=== PATIENT | male | born 1980 | race Hispanic/Latino ===

== ENCOUNTER 2016-10-27 08:00 | Emergency (ER) | payer MEDICARE ==
[2016-10-27] MEDS ORDERED: PERCOCET 5/325 PO ONE (08:55)
--- NOTE | 2016-10-27 09:01 | Emergency Department Report ---
ED General Adult HPI - General Chief complaint: Pain General Stated complaint: LEFT SIDE BODY PAIN Time Seen by Provider: 10/27/16 08:47 Source: patient, EMS Mode of arrival: Stretcher Limitations: Physical Limitation - History of Present Illness Initial comments: 35-year-old male with past medical history of CVA with residual left-sided deficits, hypertension, previous craniotomy/tracheostomy and PEG presents to the hospital complains of left-sided pain and no bowel movement. Patient has chronic intermittent left-sided body pain since his CVA which has been exacerbated for the last 4 days. Pain is rated a 10 in intensity without aggravating or alleviating factors. Patient is a chronically uses a fentanyl patch and takes hydrocodone. He has not had a bowel movement in the last 6 days. He typically has one bowel movement every 3 days. Patient denies abdominal pain, nausea, vomiting, or fever. Patient is wheelchair-bound and lives in a [facility] living. Patient denies any further intra-abdominal surgeries other than for PEG. Has a scar to right lower quadrant for baclofen pump placement. - Related Data Home Medications Medication Instructions Recorded Confirmed Last Taken Baclofen [Lioresal] 10 mg PO 09/16/14 09/16/14 Unknown ARIPiprazole 15 mg PO QDAY 10/27/16 10/27/16 Unknown DULoxetine 30 mg PO QDAY 10/27/16 10/27/16 Unknown Divalproex Sodium 500 mg PO TID 10/27/16 10/27/16 Unknown Metoprolol 25 mg PO BID 10/27/16 10/27/16 Unknown Omeprazole 20 mg PO QDAY 10/27/16 10/27/16 Unknown Pravastatin 10 mg PO BID 10/27/16 10/27/16 Unknown lamoTRIgine 25 mg PO QDAY 10/27/16 10/27/16 Unknown Previous Rx's Medication Instructions Recorded Last Taken Type Pantoprazole [Protonix TAB] 40 mg PO QDAY #30 tablet 09/17/14 Unknown Rx Polyethylene Glycol 3350 [Miralax 17 gm PO QDAY PRN #15 packet 10/27/16 Unknown Rx 3350] Allergies Allergy/AdvReac Type Severity Reaction Status Date / Time No Known Allergies Allergy Unverified 10/27/16 08:44 ED Review of Systems ROS: Stated complaint: LEFT SIDE BODY PAIN Other details as noted in HPI Comment: All other systems reviewed and negative Other: Constitutional: No fevers chills Eyes: No eye pain visual changes ENT: No ear pain or throat pain Neck: Denies pain Respiratory: Denies cough wheezing shortness of breath Cardiovascular: Denies chest pain, palpitations, syncopes GI: Denies abdominal pain, nausea, vomiting, diarrhea : Denies dysuria, urinary frequency, or urgency Musculoskeletal: as per hpi Skin: Denies rash, lesions, erythema Neurologic: Denies headache, numbness, weakness Psychiatric: Denies suicidal ideation, hallucinations ED Past Medical Hx - Past Medical History Previous Medical History?: Yes Hx Hypertension: Yes (metoprolol) Hx CVA: Yes (2011 L sided deficits) Hx Congestive Heart Failure: No Hx Diabetes: No Hx Seizures: Yes Hx Asthma: No Hx COPD: No - Surgical History Additional Surgical History: Crainectomy, Trach - Social History Smoking Status: Never Smoker Substance Use Type: None - Medications Home Medications: Home Medications Medication Instructions Recorded Confirmed Last Taken Type Baclofen [Lioresal] 10 mg PO 09/16/14 09/16/14 Unknown History Pantoprazole [Protonix TAB] 40 mg PO QDAY #30 tablet 09/17/14 Unknown Rx ARIPiprazole 15 mg PO QDAY 10/27/16 10/27/16 Unknown History DULoxetine 30 mg PO QDAY 10/27/16 10/27/16 Unknown History Divalproex Sodium 500 mg PO TID 10/27/16 10/27/16 Unknown History Metoprolol 25 mg PO BID 10/27/16 10/27/16 Unknown History Omeprazole 20 mg PO QDAY 10/27/16 10/27/16 Unknown History Polyethylene Glycol 3350 [Miralax 17 gm PO QDAY PRN #15 packet 10/27/16 Unknown Rx 3350] Pravastatin 10 mg PO BID 10/27/16 10/27/16 Unknown History lamoTRIgine 25 mg PO QDAY 10/27/16 10/27/16 Unknown History ED Physical Exam - General Limitations: Physical Limitation - Other Other exam information: General: No limitations, patient is alert in no acute distress Head exam: Atraumatic, normocephalic Eyes exam: Normal appearance ENT: Moist mucous membrane, normal oropharynx Neck exam: Tracheostomy scar Respiratory exam: Clear to auscultation bilateral, no wheezes, rales, crackles Cardiovascular: Normal rate and rhythm, normal heart sounds Abdomen: Soft, nondistended, and nontender, and diminished bowel sounds. Extremity: Contracted left upper and lower extremity. Bilateral lower extremity edema equal bilaterally without Tenderness. PT also has limited range of motion of right knee and unable to extend past 90 degrees Back: Normal Inspection, full range of motion, no tenderness Neurologic: Alert, oriented x3, cranial nerves intact, contractures left arm and leg. Left arm atrophy. Psychiatric: normal affect, normal mood Skin: Warm, dry, intact ED Course Vital Signs 10/27/16 10/27/16 10/27/16 08:31 10:45 12:55 Temperature 98.1 F 97.5 F L Pulse Rate 81 88 88 Respiratory 16 16 16 Rate Blood Pressure 114/72 Blood Pressure 128/78 130/86 [Right] O2 Sat by Pulse 97 100 100 Oximetry - Reevaluation(s) Reevaluation #1: 10/27/16 09:04 Percocet 5 mg 2 given for pain. Patient informed of the risk of worsening constipation due to chronic narcotic use ED Medical Decision Making - Lab Data Result diagrams: 10/27/16 10:13 10/27/16 10:13 Lab Results 10/27/16 10/27/16 10/27/16 Range/Units 10:13 10:13 10:13 WBC 4.4 L (4.5-11.0) K/mm3 RBC 4.83 (3.65-5.03) M/mm3 Hgb 13.4 (11.8-15.2) gm/dl Hct 41.5 (35.5-45.6) % MCV 86 (84-94) fl MCH 28 (28-32) pg MCHC 32 (32-34) % RDW 16.1 H (13.2-15.2) % Plt Count 117 L (140-440) K/mm3 Lymph % (Auto) 28.2 (13.4-35.0) % [place] % (Auto) 6.9 (0.0-7.3) % Eos % (Auto) 7.2 H (0.0-4.3) % Baso % (Auto) 0.6 (0.0-1.8) % Lymph # 1.2 (1.2-5.4) K/mm3 [place] # 0.3 (0.0-0.8) K/mm3 Eos # 0.3 (0.0-0.4) K/mm3 Baso # 0.0 (0.0-0.1) K/mm3 Seg Neutrophils % 57.1 (40.0-70.0) % Seg Neutrophils # 2.5 (1.8-7.7) K/mm3 Sodium 142 (137-145) mmol/L Potassium 4.4 (3.6-5.0) mmol/L Chloride 103.7 (98-107) mmol/L Carbon Dioxide 22 (22-30) mmol/L Anion Gap 21 mmol/L BUN 20 (9-20) mg/dL Creatinine 0.8 (0.8-1.5) mg/dL Estimated GFR > 60 ml/min BUN/Creatinine Ratio 25.00 % Glucose 105 H (75-100) mg/dL POC Glucose 104 (70-105) Calcium 9.1 (8.4-10.2) mg/dL Total Bilirubin 0.3 (0.1-1.2) mg/dL AST 10 (5-40) units/L ALT 8 (7-56) units/L Alkaline Phosphatase 74 (35-129) units/L Total Protein 6.8 (6.3-8.2) g/dL Albumin 4.0 (3.9-5) g/dL Albumin/Globulin Ratio 1.4 % - Radiology Data Radiology results: report reviewed xr abd 2 views: naf ct a/p without IV contrast: Mild fecal retention in the rectum. No bowel exertion or severe constipation. Left renal cyst and nonobstructive 2 mm left renal stone. No acute abdominal process - Medical Decision Making Patient had a large bowel movement after receiving soapsuds enema after failed response to fleets mineral oil enema. Patient also received by mouth lactulose. CT does not show any obstruction or significant constipation. Patient will be discharged home with MiraLAX to take as needed for constipation. - Differential Diagnosis constipation, obstruction, chronic pain, narcotic induced constipation Critical Care Time: No Critical care attestation.: If time is entered above; I have spent that time in minutes in the direct care of this critically ill patient, excluding procedure time. ED Disposition Clinical Impression: Constipation, Impacted stool in rectum, Constipation due to opioid therapy, Chronic pain Disposition: DISCHARGED TO HOME OR SELFCARE Is pt being admited?: No Does the pt Need Aspirin: No Condition: Stable Instructions: Constipation (ED), Chronic Pain (ED) Additional Instructions: Your chronic use of narcotics is contributing to her constipation. Use MiraLAX as needed daily for continued constipation. Return if symptoms worsen. Prescriptions: Polyethylene Glycol 3350 [Miralax 3350] 17 gm PO QDAY PRN #15 packet PRN Reason: Constipation Referrals: MENDEZ VELA MD [Primary Care Provider] - 3-5 Days Time of Disposition: 14:26
--- NOTE | 2016-10-27 10:08 | XRay Report ---
ABDOMEN TWO VIEWS: History: Abdominal pain and distention, no bowel movement in 6 days. There is no evidence of free air beneath the diaphragms. The gas pattern within the abdomen is unremarkable. There is no evidence of bowel dilatation, significant air-fluid levels, or masses. The psoas margins are adequately visualized. IMPRESSION: Unremarkable abdomen.
--- NOTE | 2016-10-27 10:48 | Cat Scan Report ---
CT OF THE ABDOMEN AND PELVIS WITHOUT CONTRAST HISTORY: Constipation, abdominal pain. TECHNIQUE: Helical CT without contrast. Sagittal and coronal reformatted images. FINDINGS: Heart size is normal. The visualized lung bases are clear. The bony structures are intact. Chronic deformity and advanced osteoarthritic changes at the left hip are noted. The liver, biliary system, pancreas, spleen and adrenal glands are unremarkable. The aorta is normal caliber. An IVC filter is in place at the level of L3. No ascites or bulky adenopathy. No inflammatory changes. The right kidney and collecting system are within normal limits. A 1 cm cyst is noted in the superior left kidney. A 2 mm calyceal stone is noted the inferior left kidney. Left ureter is normal course and caliber. Normal bladder. There is mild to moderate stool in the rectal vault. Normal stool the colon. No evidence for bowel obstruction or focal thickening. Normal appendix. Impression: Mild fecal retention in the rectum. No bowel obstruction or severe constipation. Left renal cyst and nonobstructing 2 mm left renal stone. No acute abdominal process.
[2016-10-27 10:49] LABS: Alanine Aminotransferase 8 units/L (7-56); Albumin/Globulin Ratio 1.4 %; Alkaline Phosphatase 74 units/L (35-129); Anion Gap 21 mmol/L; Basophils % (Auto) 0.6 % (0.0-1.8); Bilirubin,Total 0.3 mg/dL (0.1-1.2); Blood Urea Nitrogen 20 mg/dL (9-20); Calcium 9.1 mg/dL (8.4-10.2); Carbon Dioxide 22 mmol/L (22-30); Chloride 103.7 mmol/L (98-107); Eosinophils % (Auto) 7.2 % (0.0-4.3); Glucose 105 mg/dL (75-100); Hematocrit 41.5 % (35.5-45.6); Hemoglobin 13.4 gm/dl (11.8-15.2); Mean Corpuscular HGB Conc 32 % (32-34); Mean Corpuscular Hemoglobin 28 pg (28-32); Mean Corpuscular Volume 86 fl (84-94); Platelet Count 117 K/mm3 (140-440); Potassium 4.4 mmol/L (3.6-5.0); Red Blood Count 4.83 M/mm3 (3.65-5.03); Red Cell Distribution Width 16.1 % (13.2-15.2); Sodium 142 mmol/L (137-145); Total Protein 6.8 g/dL (6.3-8.2); White Blood Count 4.4 K/mm3 (4.5-11.0)
[2016-10-27] MEDS ORDERED: CEPHULAC PO ONE (10:59)
[2016-10-27] MEDS ORDERED: FLEET MINERAL OIL PR ONE (11:43)
[2016-10-27] MEDS ORDERED: CEPHULAC PR ONE (13:21)
[2016-10-27 15:19] VITALS: BP 102/62
== END 2016-10-27 16:10 | disposition home or self-care (01) ==
LOC: ED 08:00
DX: K59.00 Constipation, unspecified (principal); K56.41 Fecal impaction; G89.29 Other chronic pain; I10 Essential (primary) hypertension; R56.9 Unspecified convulsions; Z86.73 Personal history of transient ischemic attack (TIA), and cerebral infarction without residual deficits
CPT/HCPCS: 36415; 74020; 74176; 80053; 82962; 85025

== ENCOUNTER 2016-10-28 14:49 | Emergency (ER) | payer MEDICARE ==
--- NOTE | 2016-10-28 16:55 | Emergency Department Report ---
ED General Adult HPI - General Chief complaint: Medical Clearance Stated complaint: LEFT SIDE PAIN Time Seen by Provider: 10/28/16 16:49 Source: patient, RN notes reviewed, old records reviewed Mode of arrival: Stretcher Limitations: Physical Limitation - History of Present Illness Initial comments: This is a 35-year-old male. He is previously unknown to me. Past medical history includes hemorrhagic stroke with residual left-sided deficits, upper extremity contracture, hypertension, previous craniotomy/ tracheostomy, PEG tube placement. Patient was seen in the ER for evaluation of abdominal pain yesterday, and diagnosed with constipation. Patient had a CT scan of the abdomen and pelvis which demonstrated fecal retention. He had a large bowel movement after receiving soapsuds enema. He also received oral lactulose. He was discharged home with MiraLAX. Patient is brought to the hospital today by EMS after defecating on himself, and having inability to clean himself. He has no headache, neck pain, chest pain, nausea or vomiting at this time. He denies irritative and obstructive urinary symptoms. Reports abdominal discomfort is improved. He indicates that he came to the ER "to get cleaned up from this bowel movement. " Patient was cleaned up by the ER field evidence technician prior to my evaluation. He is not homicidal. He is not suicidal. Patient has home health services, and was independently evaluated by the supportive employment case manager, who has ordered an at home evaluation. -: Gradual Consistency: now resolved Improves with: none Worsens with: none Associated Symptoms: denies other symptoms - Related Data Home Medications Medication Instructions Recorded Confirmed Last Taken Baclofen [Lioresal] 10 mg PO 09/16/14 09/16/14 Unknown ARIPiprazole 15 mg PO QDAY 10/27/16 10/27/16 Unknown DULoxetine 30 mg PO QDAY 10/27/16 10/27/16 Unknown Divalproex Sodium 500 mg PO TID 10/27/16 10/27/16 Unknown Metoprolol 25 mg PO BID 10/27/16 10/27/16 Unknown Omeprazole 20 mg PO QDAY 10/27/16 10/27/16 Unknown Pravastatin 10 mg PO BID 10/27/16 10/27/16 Unknown lamoTRIgine 25 mg PO QDAY 10/27/16 10/27/16 Unknown Previous Rx's Medication Instructions Recorded Last Taken Type Pantoprazole [Protonix TAB] 40 mg PO QDAY #30 tablet 09/17/14 Unknown Rx Polyethylene Glycol 3350 [Miralax 17 gm PO QDAY PRN #15 packet 10/27/16 Unknown Rx 3350] Allergies Allergy/AdvReac Type Severity Reaction Status Date / Time No Known Allergies Allergy Unverified 10/27/16 08:44 ED Review of Systems ROS: Stated complaint: LEFT SIDE PAIN Other details as noted in HPI Constitutional: denies: fever Eyes: denies: eye discharge ENT: denies: epistaxis Respiratory: denies: cough Cardiovascular: denies: chest pain Gastrointestinal: constipation Genitourinary: as per HPI Musculoskeletal: as per HPI Skin: as per HPI Neurological: weakness (chronic) Psychiatric: as per HPI ED Past Medical Hx - Past Medical History Hx Hypertension: Yes (metoprolol) Hx CVA: Yes (2012 L sided deficits) Hx Congestive Heart Failure: No Hx Diabetes: No Hx Seizures: Yes Hx Asthma: No Hx COPD: No - Surgical History Additional Surgical History: Crainectomy, Trach - Social History Smoking Status: Never Smoker Substance Use Type: None - Medications Home Medications: Home Medications Medication Instructions Recorded Confirmed Last Taken Type Baclofen [Lioresal] 10 mg PO 09/16/14 09/16/14 Unknown History Pantoprazole [Protonix TAB] 40 mg PO QDAY #30 tablet 09/17/14 Unknown Rx ARIPiprazole 15 mg PO QDAY 10/27/16 10/27/16 Unknown History DULoxetine 30 mg PO QDAY 10/27/16 10/27/16 Unknown History Divalproex Sodium 500 mg PO TID 10/27/16 10/27/16 Unknown History Metoprolol 25 mg PO BID 10/27/16 10/27/16 Unknown History Omeprazole 20 mg PO QDAY 10/27/16 10/27/16 Unknown History Polyethylene Glycol 3350 [Miralax 17 gm PO QDAY PRN #15 packet 10/27/16 Unknown Rx 3350] Pravastatin 10 mg PO BID 10/27/16 10/27/16 Unknown History lamoTRIgine 25 mg PO QDAY 10/27/16 10/27/16 Unknown History ED Physical Exam - General Limitations: Physical Limitation General appearance: alert, in no apparent distress - Head Head exam: Present: atraumatic, normocephalic - Eye Eye exam: Present: normal appearance, EOMI. Absent: nystagmus - ENT ENT exam: Present: normal exam, normal orophraynx, mucous membranes moist, normal external ear exam - Neck Neck exam: Present: normal inspection, full ROM. Absent: tenderness, meningismus - Respiratory Respiratory exam: Present: normal lung sounds bilaterally. Absent: respiratory distress, wheezes, rales, rhonchi, stridor, decreased breath sounds - Cardiovascular Cardiovascular Exam: Present: regular rate, normal rhythm, normal heart sounds. Absent: bradycardia, tachycardia, irregular rhythm, systolic murmur, diastolic murmur, rubs, gallop - GI/Abdominal GI/Abdominal exam: Present: soft, normal bowel sounds. Absent: distended, tenderness, guarding, rebound, rigid, pulsatile mass - Rectal Rectal exam: Present: deferred - Extremities Exam Extremities exam: Present: normal inspection, normal capillary refill, other ( contractures noted to left upper extremity, left lower extremity, this is not new, worsening or different). Absent: calf tenderness - Back Exam Back exam: Present: normal inspection. Absent: CVA tenderness (R), paraspinal tenderness, vertebral tenderness - Neurological Exam Neurological exam: Present: alert, oriented X3, motor sensory deficit (chronic weakness left upper extremity, left lower extremity) - Psychiatric Psychiatric exam: Present: normal affect, normal mood - Skin Skin exam: Present: warm, dry, intact, normal color. Absent: rash ED Course Vital Signs 10/28/16 10/28/16 10/28/16 15:51 19:31 19:32 Temperature 98.2 F 98.0 F Pulse Rate 88 86 Respiratory 20 18 Rate Blood Pressure 128/79 Blood Pressure 126/77 [Right] O2 Sat by Pulse 97 99 100 Oximetry - Reevaluation(s) Reevaluation #1: 10/28/16 17:13 Differential diagnosis: Inability to clean himself after defecation, general medical evaluation, chronic left-sided weakness, resolving constipation Assessment and plan: 35-year-old male with clinically resolving constipation who presented to the ER after inability to clean himself after having a bowel movement. He has no acute complaints. He had an extensive evaluation yesterday. He has home health services, and the supportive employment case manager has already set up for home health evaluation to determine if the patient is a candidate for further services. The patient wants to go home, and I can detect no immediate or emergent medical condition that requires further evaluation at this time. He will be discharged home. He is instructed to follow up with his primary care doctor. 10/28/16 17:15 ED Medical Decision Making - Lab Data Vital Signs 10/28/16 15:51 Temperature 98.2 F Pulse Rate 88 Respiratory 20 Rate Blood Pressure 128/79 O2 Sat by Pulse 97 Oximetry Critical care attestation.: If time is entered above; I have spent that time in minutes in the direct care of this critically ill patient, excluding procedure time. ED Disposition Clinical Impression: History of constipation Disposition: DISCHARGED TO HOME OR SELFCARE Is pt being admited?: No Does the pt Need Aspirin: No Condition: Good Instructions: Constipation (ED), High Fiber Diet (ED) Additional Instructions: continue current outpatient medications. Follow up with a primary care doctor within the next 2 weeks. Return to the ER right away with fevers or chills, chest pain or shortness of breath, intractable nausea or vomiting, inability to tolerate liquids. Referrals: DEBRA REDMAN MD [Primary Care Provider] - 3-5 Days NILSON HIGGINS MD [Staff Physician] - 3-5 Days
[2016-10-28 19:32] VITALS: BP 126/77
== END 2016-10-28 19:59 | disposition home or self-care (01) ==
LOC: ED 14:49
DX: R53.1 Weakness (principal); I10 Essential (primary) hypertension; I63.9 Cerebral infarction, unspecified; R56.9 Unspecified convulsions
CPT/HCPCS: 99283

== ENCOUNTER 2016-11-13 17:08 | Emergency (ER) | payer MEDICARE ==
[2016-11-13] MEDS ORDERED: TYLENOL PO ONE (19:09)
[2016-11-13] MEDS ORDERED: PERCOCET 5/325 PO ONE (20:47)
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
[2016-11-13 21:45] LABS: Basophils % (Auto) 0.7 % (0.0-1.8); Eosinophils % (Auto) 2.3 % (0.0-4.3); Hematocrit 39.9 % (35.5-45.6); Hemoglobin 13.2 gm/dl (11.8-15.2); Mean Corpuscular HGB Conc 33 % (32-34); Mean Corpuscular Hemoglobin 28 pg (28-32); Mean Corpuscular Volume 86 fl (84-94); Platelet Count 128 K/mm3 (140-440); Red Blood Count 4.66 M/mm3 (3.65-5.03); Red Cell Distribution Width 17.3 % (13.2-15.2); White Blood Count 7.7 K/mm3 (4.5-11.0)
[2016-11-13 22:02] LABS: Anion Gap 17 mmol/L; BUN/Creatinine Ratio 26.66; Blood Urea Nitrogen 16 mg/dL (9-20); Carbon Dioxide 22 mmol/L (22-30); Chloride 105.6 mmol/L (98-107); Glucose 98 mg/dL (75-100); Potassium 4.2 mmol/L (3.6-5.0); Sodium 140 mmol/L (137-145)
[2016-11-13 22:53] LABS: Bacteria,Urine 4+ /HPF (Negative); Bilirubin,Urine NEG (Negative); Blood,Urine NEG (Negative); Ketones,Urine TR mg/dL (Negative); Leukocyte Esterase,Urine NEG (Negative); Mucus,Urine FEW /HPF; Nitrite,Urine POS (Negative); Protein,Urine <15 mg/dL mg/dL (Negative)
[2016-11-13 22:54] LABS: WBC,Urine < 1.0 /HPF (0.0-6.0)
[2016-11-13] MEDS ORDERED: MACROBID PO ONE (23:31)
[2016-11-14] MEDS ORDERED: NORCO 5/325 PO ONE (08:53)
[2016-11-14 09:36] VITALS: BP 114/73
== END 2016-11-14 10:43 | disposition home or self-care (01) ==
LOC: ED 17:08
DX: N39.0 Urinary tract infection, site not specified (principal); M62.81 Muscle weakness (generalized); Z86.73 Personal history of transient ischemic attack (TIA), and cerebral infarction without residual deficits; I10 Essential (primary) hypertension
CPT/HCPCS: 36415; 80048; 81001; 85025; 87086; 99284

== ENCOUNTER 2016-11-20 12:15 | Emergency (ER) | payer MEDICARE ==
[2016-11-20 12:54] VITALS: BP 117/72
[2016-11-20] MEDS ORDERED: DILAUDID IM ONE (13:22)
--- NOTE | 2016-11-20 13:23 | Emergency Department Report ---
ED General Adult HPI - General Chief complaint: Urogenital-Male Stated complaint: UTI PAIN Time Seen by Provider: 11/20/16 13:12 Source: patient, EMS (ems notes not available at time of chart dictation), RN notes reviewed Mode of arrival: Stretcher Limitations: Physical Limitation - History of Present Illness Initial comments: This is a 35-year-old male. I have evaluated him in the past. He has a past medical history of stroke with residual left-sided deficits, upper extremity contracture, hypertension, previous craniotomy/tracheostomy, PEG tube placement. The patient was seen in the ER on November 13, presumptively diagnosed with urinary tract infection, discharged with Macrobid. Cultures were not sent at that time. Apparently, patient has Adult Protective Services involved. As her prior documentation, patient had an appointment with the primary care doctor on November 19 who was supposed to get him admitted into the hospital so he could be transferred to a fci. In the meantime patient is at home without any assistance and care. The patient informs me that he saw his primary care doctor yesterday, and he informs me that "my primary care doctor did nothing." The patient comes to the ER complaining of completes total body pain. Pain is sharp. It typically decreases with hydromorphone. Patient also reports that he has urinary tract infection. He is not certain as to why he's had a urinary tract infection. In addition, the patient is seen and evaluated by case management, who indicated to me that Adult Protective Services sent the patient here. As per EMS documentation, patient had a bowel movement on himself, denies shortness of breath, altered mental status, chest pain, abdominal pain. Patient has been evaluated in the past at this facility for inability to care for himself. He has already been seen by case management in the past. -: Gradual Severity scale (0 -10): 0 Improves with: medication Worsens with: none Associated Symptoms: denies: confusion, chest pain, cough, diaphoresis, fever/ chills - Related Data Home Medications Medication Instructions Recorded Confirmed Last Taken Baclofen [Lioresal] 10 mg PO DAILY 09/16/14 11/20/16 Unknown ARIPiprazole 15 mg PO QDAY 10/27/16 11/20/16 Unknown DULoxetine 30 mg PO QDAY 10/27/16 11/20/16 Unknown Divalproex Sodium 500 mg PO TID 10/27/16 11/20/16 Unknown Metoprolol 25 mg PO BID 10/27/16 11/20/16 Unknown Omeprazole 20 mg PO QDAY 10/27/16 11/20/16 Unknown Pravastatin 10 mg PO BID 10/27/16 11/20/16 Unknown lamoTRIgine 25 mg PO QDAY 10/27/16 11/20/16 Unknown Previous Rx's Medication Instructions Recorded Last Taken Type Pantoprazole [Protonix TAB] 40 mg PO QDAY #30 tablet 09/17/14 Unknown Rx Polyethylene Glycol 3350 [Miralax 17 gm PO QDAY PRN #15 packet 10/27/16 Unknown Rx 3350] HYDROcodone/APAP 5-325 [[place] 1 each PO Q6HR PRN #14 tablet 11/14/16 Unknown Rx 5/325] Nitrofurantoin [place]/M-Cryst 100 mg PO Q12HR #10 capsule 11/14/16 Unknown Rx [Macrobid CAP] Nitrofurantoin [place]/M-Cryst 100 mg PO Q12HR #14 capsule 11/20/16 Unknown Rx [Macrobid CAP] Allergies Allergy/AdvReac Type Severity Reaction Status Date / Time No Known Allergies Allergy Unverified 10/27/16 08:44 ED Review of Systems ROS: Stated complaint: UTI PAIN Other details as noted in HPI Constitutional: denies: fever Eyes: denies: vision change ENT: denies: epistaxis Respiratory: denies: cough Cardiovascular: denies: chest pain Gastrointestinal: denies: abdominal pain Genitourinary: as per HPI Musculoskeletal: arthralgia, myalgia Skin: as per HPI Neurological: weakness Psychiatric: as per HPI ED Past Medical Hx - Past Medical History Previous Medical History?: Yes Hx Hypertension: Yes (metoprolol) Hx CVA: Yes (2011 L sided deficits) Hx Congestive Heart Failure: No Hx Diabetes: No Hx Seizures: Yes Hx Asthma: No Hx COPD: No - Surgical History Past Surgical History?: Yes Additional Surgical History: Crainectomy, Trach - Social History Smoking Status: Never Smoker - Medications Home Medications: Home Medications Medication Instructions Recorded Confirmed Last Taken Type Baclofen [Lioresal] 10 mg PO DAILY 09/16/14 11/20/16 Unknown History Pantoprazole [Protonix TAB] 40 mg PO QDAY #30 tablet 09/17/14 11/20/16 Unknown Rx ARIPiprazole 15 mg PO QDAY 10/27/16 11/20/16 Unknown History DULoxetine 30 mg PO QDAY 10/27/16 11/20/16 Unknown History Divalproex Sodium 500 mg PO TID 10/27/16 11/20/16 Unknown History Metoprolol 25 mg PO BID 10/27/16 11/20/16 Unknown History Omeprazole 20 mg PO QDAY 10/27/16 11/20/16 Unknown History Polyethylene Glycol 3350 [Miralax 17 gm PO QDAY PRN #15 packet 10/27/16 Unknown Rx 3350] Pravastatin 10 mg PO BID 10/27/16 11/20/16 Unknown History lamoTRIgine 25 mg PO QDAY 10/27/16 11/20/16 Unknown History HYDROcodone/APAP 5-325 [[place] 1 each PO Q6HR PRN #14 tablet 11/14/16 11/20/16 Unknown Rx 5/325] Nitrofurantoin [place]/M-Cryst 100 mg PO Q12HR #10 capsule 11/14/16 11/20/16 Unknown Rx [Macrobid CAP] Nitrofurantoin [place]/M-Cryst 100 mg PO Q12HR #14 capsule 11/20/16 Unknown Rx [Macrobid CAP] ED Physical Exam - General Limitations: Physical Limitation General appearance: alert, in no apparent distress, obese - Head Head exam: Present: atraumatic, normocephalic - Eye Eye exam: Present: normal appearance, EOMI Pupils: Absent: unequal - ENT ENT exam: Present: normal exam, normal orophraynx, mucous membranes moist, other (there is a tracheostomy stoma noted, with no redness, pus, streaking) - Neck Neck exam: Present: normal inspection, full ROM. Absent: tenderness, meningismus - Respiratory Respiratory exam: Present: normal lung sounds bilaterally. Absent: respiratory distress, wheezes, rales, rhonchi, stridor, chest wall tenderness, accessory muscle use, decreased breath sounds, prolonged expiratory - Cardiovascular Cardiovascular Exam: Present: regular rate, normal rhythm. Absent: systolic murmur, diastolic murmur, rubs, gallop - GI/Abdominal GI/Abdominal exam: Present: soft, normal bowel sounds - Rectal Rectal exam: Present: other (there is minimal skin breakdown. There is no redness, pus or streaking) - exam: Present: normal inspection - Extremities Exam Extremities exam: Present: normal capillary refill, other (contracture noted to left upper extremity. paretic in left upper extremity, left lower extremity). Absent: calf tenderness - Back Exam Back exam: Present: normal inspection. Absent: tenderness - Neurological Exam Neurological exam: Present: alert, oriented X3, motor sensory deficit (chronic weakness left upper extremity, left lower extremity) - Psychiatric Psychiatric exam: Present: normal affect, normal mood - Skin Skin exam: Present: warm, dry, intact, normal color. Absent: rash ED Course Vital Signs 11/20/16 12:53 Temperature 98.2 F Pulse Rate 74 Respiratory 18 Rate Blood Pressure 117/72 [Right] O2 Sat by Pulse 100 Oximetry - Reevaluation(s) Reevaluation #1: 11/20/16 14:19 differential diagnosis: Chronic pain, social issues, urinary tract infection, general medical evaluation Assessment and plan: 35-year-old male with predominantly social issues. He is afebrile with reassuring vital signs, resting comfortably at this time. He has no objective indication for admission to the hospital at this time. He is sent to the ER most likely for placement. The patient was seen and evaluated by case management last time, and he refused information about personal care homes. At this point in time, there is no objective medical indication to admit the patient to the hospital. He has chronic pain, and upon my reevaluation is noted to be sleeping comfortably. The patient is seen and evaluated by case management, Mr. López Lachelle, and the case coordinator model making supervisor, who have independently corroborated on this patient's care. He has an outpatient home to go home to. At this point in time, it does not appear that there is no emergent medical condition that requires further intervention, and the patient is medically suitable to be discharged. Urinalysis appreciated cultures will be sent. The patient's primary care doctor can follow up on this. 11/20/16 14:26 11/20/16 14:28 Reevaluation #2: 11/20/16 14:43 patient is seen and evaluated by case management; BAKARI Alicea The patient is instructed to either contact group homes or fci, and requests placement. As per case management, patient does get his own checks, and he was given numerous phone numbers by case management to call for placement options. The patient is instructed as to the importance of contacting any of the listed numbers for placement. ED Medical Decision Making - Lab Data Result diagrams: 11/20/16 13:29 Vital Signs 11/20/16 12:53 Temperature 98.2 F Pulse Rate 74 Respiratory 18 Rate Blood Pressure 117/72 [Right] O2 Sat by Pulse 100 Oximetry Lab Results 11/20/16 11/20/16 Range/Units 13:29 13:30 Sodium 143 (137-145) mmol/L Potassium 4.3 (3.6-5.0) mmol/L Chloride 105.1 (98-107) mmol/L Carbon Dioxide 23 (22-30) mmol/L Anion Gap 19 mmol/L BUN 13 (9-20) mg/dL Creatinine 0.6 L (0.8-1.5) mg/dL Estimated GFR > 60 ml/min BUN/Creatinine Ratio 21.66 % Glucose 87 (75-100) mg/dL Calcium 8.8 (8.4-10.2) mg/dL Total Creatine Kinase 57 (55-170) units/L Urine Color [place] (Yellow) Urine Turbidity Clear (Clear) Urine pH 6.0 (5.0-7.0) Ur Specific [place] 1.016 (1.003-1.030) Urine Protein <15 mg/dl (Negative) mg/dL Urine Glucose (UA) Neg (Negative) mg/dL Urine Ketones 20 (Negative) mg/dL Urine Blood Neg (Negative) Urine Nitrite Neg (Negative) Urine Bilirubin Neg (Negative) Urine Urobilinogen < 2.0 (<2.0) mg/dL Ur Leukocyte Esterase Sm (Negative) Urine WBC (Auto) 19.0 H (0.0-6.0) /HPF Urine RBC (Auto) 1.0 (0.0-6.0) /HPF U Epithel Cells (Auto) < 1.0 (0-13.0) /HPF Urine Bacteria (Auto) 1+ (Negative) /HPF Urine Mucus Few /HPF Critical care attestation.: If time is entered above; I have spent that time in minutes in the direct care of this critically ill patient, excluding procedure time. ED Disposition Clinical Impression: Chronic pain Disposition: DISCHARGED TO HOME OR SELFCARE Is pt being admited?: No Does the pt Need Aspirin: No Condition: Stable Additional Instructions: Continue current outpatient medications. Cultures was sent today, was also be available in the next 3-5 days. Have a primary care doctor contact the medical records department to obtain culture results. Return to the ER right away with fevers or chills, chest pain or shortness of breath, intractable nausea or vomiting, inability to tolerate liquid feeds, new, worsening or different symptoms. Do not take the antibiotics unless you receive a specific call either from the laboratory or from medical records or from her primary care doctor to take the antibiotics. Please return to the ER right away with new, worsens or different symptoms. Prescriptions: Nitrofurantoin [place]/M-Cryst [Macrobid CAP] 100 mg PO Q12HR #14 capsule Referrals: PRIMARY CAREMD [Primary Care Provider] - 3-5 Days JESUS ALBERTO ARTHUR MD [Staff Physician] - 3-5 Days
[2016-11-20 14:00] LABS: Anion Gap 19 mmol/L; BUN/Creatinine Ratio 21.66; Blood Urea Nitrogen 13 mg/dL (9-20); Calcium 8.8 mg/dL (8.4-10.2); Carbon Dioxide 23 mmol/L (22-30); Chloride 105.1 mmol/L (98-107); Creatine Kinase 57 units/L (55-170); Glucose 87 mg/dL (75-100); Potassium 4.3 mmol/L (3.6-5.0); Sodium 143 mmol/L (137-145)
[2016-11-20 14:10] LABS: Bacteria,Urine 1+ /HPF (Negative); Bilirubin,Urine NEG (Negative); Blood,Urine NEG (Negative); Ketones,Urine 20 mg/dL (Negative); Leukocyte Esterase,Urine SM (Negative); Mucus,Urine FEW /HPF; Nitrite,Urine NEG (Negative); Protein,Urine <15 mg/dL mg/dL (Negative); Urobilinogen,Urine < 2.0 mg/dL (<2.0)
== END 2016-11-20 16:52 | disposition home or self-care (01) ==
LOC: ED 12:15
DX: M79.1 Myalgia (principal); G89.29 Other chronic pain; I10 Essential (primary) hypertension; Z86.73 Personal history of transient ischemic attack (TIA), and cerebral infarction without residual deficits
CPT/HCPCS: 36415; 80048; 81001; 82550; 87086; 96372; 99284; J1170